=== PATIENT | female | born 1955 | race Hispanic/Latino ===

== ENCOUNTER 2018-01-17 17:39 | Emergency (ER) | payer OTHER ==
[~2018-01-17] VITALS: Ht 162.6 cm; Wt 74.8 kg
[~2018-01-17 17:39] MED LIST: ASPIR 8181 MG PO; ATORVASTATIN CALCIUM PO; METFORMIN PO; MULTAQ 400MG T400 MG PO; VASOTEC5 MG PO; VICTOZA 2-0.6 MG/0.1 SC
[2018-01-17] MEDS ORDERED: TETRACAINE HCL 0.5% OPTH SOLN 4 ML BTL OP ONE (18:15)
[2018-01-17] MEDS ORDERED: FLUORESCEIN SOD(OPTH) 1 MG STRP OP ONE (18:15)
[2018-01-17 19:04] VITALS: BP 176/88
[2018-01-17] MEDS ORDERED: HYDROCODONE/APAP 10MG-325MG TAB ONE (19:15)
[2018-01-17] MEDS ORDERED: HYDROCODONE/APAP 10MG-325MG TAB PO ONE (19:15)
== END 2018-01-17 19:18 | disposition home or self-care (01) ==
LOC: ER 17:39
DX: S05.8X2A Other injuries of left eye and orbit, initial encounter (principal); T15.02XA Foreign body in cornea, left eye, initial encounter; H18.822 Corneal disorder due to contact lens, left eye; I48.91 Unspecified atrial fibrillation; I10 Essential (primary) hypertension; E78.5 Hyperlipidemia, unspecified; F32.9 Major depressive disorder, single episode, unspecified
CPT/HCPCS: 99283